=== PATIENT | male | born 1990 | race Caucasian/White ===

== ENCOUNTER 2017-12-01 08:37 | Emergency (ER) | payer SELFPAY ==
[~2017-12-01] VITALS: Ht 182.9 cm; Wt 85.0 kg
[2017-12-01 08:38] VITALS: BP 142/91
== END 2017-12-01 10:34 | disposition left against medical advice (07) ==
LOC: ER 08:37
DX: Z53.21 Procedure and treatment not carried out due to patient leaving prior to being seen by health care provider (principal)
CPT/HCPCS: X7700; Z7610

== ENCOUNTER 2018-04-16 21:07 | Emergency (ER) | payer MEDICAID | END 2018-04-16 23:20 | disposition left against medical advice (07) | LOC: ER 21:07 | DX: Z53.21 Procedure and treatment not carried out due to patient leaving prior to being seen by health care provider (principal) ==